=== PATIENT | male | born 1950 | race Caucasian/White ===

== ENCOUNTER 2018-01-17 09:05 | Day surgery (SDC) | payer MEDICARE, OTHER ==
[2018-01-17] VITALS (12 sets, daily range): BP systolic 100–158; BP diastolic 59–94
[~2018-01-17] VITALS: Ht 180.3 cm; Wt 105.1 kg
[2018-01-17] MEDS ORDERED: diphenhydrAMINE 25mg capsule PO PRN (10:05)
[2018-01-17] MEDS ORDERED: nitroGLYCERIN 0.4mg SUBLingual tab SL PRN (10:05)
[2018-01-17] MEDS ORDERED: LORazepam 0.5 MG tablet PO PRN (10:05)
[2018-01-17] MEDS ORDERED: normal saline 1000ml 1,000 ML IV SCH ×2 (10:05→15:25)
[2018-01-17] MEDS ORDERED: CELE200C PO (10:54)
[2018-01-17] MEDS ORDERED: EZET10TA14 PO (10:54)
[2018-01-17] MEDS ORDERED: BACL20TA PO (10:54)
[2018-01-17] MEDS ORDERED: DICL100G15 TOP (10:54)
[2018-01-17] MEDS ORDERED: IBUP1TAB11 PO (10:54)
[2018-01-17] MEDS ORDERED: LANS30CA37 PO (10:54)
[2018-01-17] MEDS ORDERED: DOXE50CA4 PO (10:54)
[2018-01-17] MEDS ORDERED: AMLO10TA4 PO (10:54)
[2018-01-17] MEDS ORDERED: VALS1TAB48 PO (10:54)
[2018-01-17] MEDS ORDERED: DOCU-28 PO (10:54)
[2018-01-17] MEDS ORDERED: HYDR-565 PO (10:54)
[2018-01-17] MEDS ORDERED: FAMO1TAB19 PO (10:54)
[2018-01-17] MEDS ORDERED: FLO0.4C PO (10:54)
[2018-01-17] MEDS ORDERED: ASPI-611 PO (10:54)
[2018-01-17] MEDS ORDERED: LIDOcaine 1% 30ml preserv. free vial ONE (12:25)
[2018-01-17] MEDS ORDERED: midazolam 2 mg/2 ml injection ONE ×2 (12:25→12:58)
[2018-01-17] MEDS ORDERED: iohexol 350MG/ML 100ml bottle IV ONE (12:25)
[2018-01-17] MEDS ORDERED: fentaNYL/PF 50MCG/1 ML 2ML syringe ONE (12:25)
[2018-01-17] MEDS ORDERED: iohexol 350 MG/ML 50ML vial IV ONE ×2 (12:25→13:16)
[2018-01-17] MEDS ORDERED: nitroGLYCERIN-Tridil 50MG/D5W 250 ML IV ONE (13:11)
[2018-01-17] MEDS ORDERED: HYDROcodone/acetaminophen 10/325mg tab PO PRN (15:25)
[2018-01-17] MEDS ORDERED: ondansetron/PF 4mg/2ml inj IV PRN (15:25)
[2018-01-17] MEDS ORDERED: HYDROcodone/acetaminophen 5mg/325mg tablet PO PRN (15:25)
[2018-01-17] MEDS ORDERED: OXAZEpam 15mg capsule PO PRN (15:25)
[2018-01-17] MEDS ORDERED: proCHLORperazine 10 MG/2 ml inj IV PRN (15:25)
== END 2018-01-17 20:00 | disposition home or self-care (01) ==
LOC: SSTAY O 09:05
PROVIDERS: ATTEND Internal Medicine Cardiovascular Disease
DX: I25.10 Atherosclerotic heart disease of native coronary artery without angina pectoris (principal); K21.9 Gastro-esophageal reflux disease without esophagitis; I10 Essential (primary) hypertension; M19.90 Unspecified osteoarthritis, unspecified site; E78.5 Hyperlipidemia, unspecified; M35.3 Polymyalgia rheumatica; Z91.040 Latex allergy status; Z79.82 Long term (current) use of aspirin; Z79.1 Long term (current) use of non-steroidal anti-inflammatories (NSAID); Z79.891 Long term (current) use of opiate analgesic; Z72.89 Other problems related to lifestyle; Z85.828 Personal history of other malignant neoplasm of skin; Z87.891 Personal history of nicotine dependence; Z79.899 Other long term (current) drug therapy; Z98.890 Other specified postprocedural states
CPT/HCPCS: 71046; 93005; 93458; 99152; 99153; A6257; A6258; C1760; C1769; J1644; J2250; J3010; J3490; J7030; Q0163; Q9967; A4620

== ENCOUNTER 2018-01-25 05:25 | Inpatient (IN) | payer MEDICARE, OTHER ==
[2018-01-23 14:22] LABS: CLARITY,URINE CLEAR (Clear); COLOR,URINE YELLOW (Yellow); GLUCOSE, URINE NEGATIVE (Neg); KETONES,URINE NEGATIVE (Neg); LEUKOCYTE ESTERASE ,URINE NEGATIVE (Neg); NITRITES, URINE NEGATIVE (Neg); OCCULT BLOOD,URINE NEGATIVE (Neg); PH,URINE 5.5 (4.8-8.0); PROTEIN,URINE NEGATIVE (Neg); UROBILINOGEN,URINE 0.2 E.U/dL (0.2-1.0)
[2018-01-23 14:23] LABS: UA COLLECTION TYPE CLN CATCH MIDSTREAM
[2018-01-23 14:25] LABS: HEMOGLOBIN A1C 5.5 % (4.5-6.2)
[2018-01-23 14:26] LABS: PRE OP PROTIME 9.9 SECONDS (9.0-12.0)
[2018-01-23 14:30] LABS: ALBUMIN/GLOBULIN RATIO 1.2 (1.1-1.5); ALKALINE PHOSPHATASE 68 IU/L (46-116); BLOOD UREA NITROGEN 23 MG/DL (7-18); BUN/CREATININE RATIO 26.1 (5.4-32.0); CALCIUM 9.4 MG/DL (8.5-10.1); CHLORIDE 106 MMOL/L (99-107); CREATININE 0.88 MG/DL (0.60-1.10); PRE OP ALT 32 U/L (30-65); PRE OP ANION GAP 11 (8-16); PRE OP AST 21 U/L (10-37); PRE OP BILIRUB, TOTAL 0.3 MG/DL (0.0-1.0); PRE OP GLUCOSE 89 MG/DL (70-104); PRE OP SODIUM 142 MMOL/L (135-145); TOTAL CARBON DIOXIDE 24.9 MMOL/L (24-32); TOTAL PROTEIN 7.3 G/DL (6.4-8.2); eGFR 86 ML/MIN
[2018-01-23 14:31] LABS: BASOPHILS # (AUTO) 0.1 X10'3 (0-0.2); BASOPHILS % (AUTO) 0.8 % (0-1); EOSINOPHILS # (AUTO) 0.2 X10'3 (0-0.9); EOSINOPHILS % (AUTO) 2.7 % (0-6); LYMPHOCYTES # (AUTO) 1.1 X10'3 (1.1-4.8); LYMPHOCYTES % (AUTO) 16.4 % (21-51); MEAN CORPUSCULAR HEMOGLOBIN 30.6 PG (27.0-31.0); MEAN CORPUSCULAR HGB CONC 34.6 % (33.0-36.5); MEAN CORPUSCULAR VOLUME 88.3 FL (78-98); MONOCYTES # (AUTO) 0.7 X10'3 (0-0.9); MONOCYTES % (AUTO) 9.9 % (2-12); NEUTROPHILS # (AUTO) 4.9 X10'3 (1.8-7.7); NEUTROPHILS % (AUTO) 70.2 % (42-75); PRE OP HEMATOCRIT 42.1 % (42.0-52.0); PRE OP HEMOGLOBIN 14.6 g/dL (14.0-17.9); PRE OP PLATELET COUNT 168 X10'3 (140-440); RED BLOOD COUNT 4.76 X10'6 (4.70-6.10); RED CELL DISTRIBUTION WIDTH 13.1 % (11.5-14.5)
[2018-01-24 06:36] LABS: ABG BASE EXCESS -2.7 mmol/L (-2.0-3.0); ABG HCO3 20.4 mmol/L (22.0-26.0); ABG OXYGEN SATURATION 95.4 % (95-98); ABG PCO2 (T) 31.2 mmHg (35.0-48.0); ABG PH (T) 7.433 (7.350-7.450); ABG PO2 (T) 75.1 mmHg (83-108); ALLEN'S TEST Positive; FCOHb 0.8 % (0.5-1.5); FMetHb 0.2 % (0.3-1.12); FO2Hb 94.4 % (94-100); TOTAL HEMOGLOBIN 14.9 G/dl (14.0-18.0)
[2018-01-25] VITALS (14 sets, daily range): BP systolic 80–140; BP diastolic 50–81
[~2018-01-25] VITALS: Ht 180.3 cm; Wt 89.0 kg
[~2018-01-25 05:25] MED LIST: AMLO10TA4 PO; ASPI-611 PO; BACL20TA PO; CELE200C PO; DICL100G15 TOP; DOCU-28 PO; DOXE50CA4 PO; EZET10TA14 PO; FAMO1TAB19 PO; FLO0.4C PO; HYDR-565 PO; IBUP1TAB11 PO; LANS30CA37 PO; LORazepam 2 mg/ml vial IV PRN; VALS1TAB48 PO; dextrose 50%-water 50ml dispensing syringe IV PRN; metoprolol tartrate 12.5mg (1/2 tablet) PO PRN; ringers solution, lacted 1,000 ML IV SCH
[2018-01-25] MEDS ORDERED: Cefazolin 2GM/50ML dext iso,osmotic IVPB IV ONE (05:30)
[2018-01-25] MEDS ORDERED: vancomycin inj 1,500 MG in normal saline 300ml IV soln IV ONE (05:30)
[2018-01-25] MEDS ORDERED: famotidine 20mg tablet PO ONE (05:30)
[2018-01-25] MEDS ORDERED: LIDOcaine 1% (10mg/ml) 2ml vial ONE (05:48)
[2018-01-25] MEDS ORDERED: papaverine 30 mg/ml 2ml inj. ONE (09:00)
[2018-01-25] MEDS: mupirocin 2% nasal ointment 1gm UD NS SCH ×2 (09:57→20:33)
[2018-01-25] MEDS ORDERED: MIDAZolam 1mg/ml 10ml vial ONE (12:16)
[2018-01-25] MEDS ORDERED: SUFENTANIL CITRATE 50 MCG/ML 2ml ampule IV ONE (12:16)
[2018-01-25] MEDS ORDERED: propofol inj 20 ML IV ONE (12:19)
[2018-01-25] MEDS ORDERED: rocuronium 10mg/ml inj IV ONE (12:20)
[2018-01-25] MEDS ORDERED: LIDOcaine 2% (20 mg/ml) 5ml cardiac syringe ONE (12:21)
[2018-01-25] MEDS ORDERED: methylPREDNISolone sod. succ. 500mg inj ONE (12:21)
[2018-01-25] MEDS ORDERED: albumin (human) 25% 100 ML IV solution IV ONE (12:21)
[2018-01-25] MEDS ORDERED: magnesium sulf 1 GM/2 ML ONE (12:21)
[2018-01-25] MEDS ORDERED: potassium Cl 2 mEq/ml inj IV ONE (12:21)
[2018-01-25] MEDS ORDERED: phenylephrine 10mg/ml inj. ONE (12:21)
[2018-01-25] MEDS ORDERED: protamine sulf. 10mg/ml inj. IV ONE (12:21)
[2018-01-25] MEDS ORDERED: sodium bicarbonate (8.4%) 1 mEq/ml syringe ONE ×2 (12:21→16:40)
[2018-01-25] MEDS ORDERED: heparin 1,000 units/ml 10ml inj ONE (12:21)
[2018-01-25] MEDS ORDERED: calcium chloride 100 MG/1 ML inj IV ONE (12:21)
[2018-01-25] MEDS ORDERED: aminocaproic acid 250 MG/1 ML inj. ONE ×2 (12:21)
[2018-01-25] MEDS ORDERED: sevoflurane 250ml liquid IH ONE (12:21)
[2018-01-25] MEDS ORDERED: heparin 10,000 units/1 ML INJ ONE (12:21)
[2018-01-25 13:16] LABS: ABG HCO3 23.4 mmol/L (22.0-26.0); ABG OXYGEN SATURATION 99.2 % (95-98); ABG PCO2 37.8 mmHg (35.0-45.0); ABG PH 7.409 (7.350-7.450); ABG PO2 268.2 mmHg (60.0-100.0); CL (ABG) 108 mmol/L (99-107); FCOHb 0.6 % (0.5-1.5); FMetHb 0.3 % (0.3-1.12); FO2Hb 98.3 % (94-100); GLUCOSE (ABG) 101 mg/dl (70-105); K (ABG) 3.7 mmol/L (3.3-5.1); NA (ABG) 139 mmol/L (135-145); TOTAL HEMOGLOBIN 13.9 G/dl (14.0-18.0)
[2018-01-25] MEDS ORDERED: heparin 10,000 units/1 ML INJ IR ONE (13:30)
[2018-01-25] MEDS ORDERED: papaverine 30 mg/ml 2ml inj. IA ONE (13:34)
[2018-01-25 13:51] LABS: ABG BASE EXCESS VENOUS -2.2 mmol/L; ABG HCO3 VENOUS 23.5 mmol/L; CL (ABG) 106 mmol/L (99-107); FHHb VENOUS 28.4 %; FMetHb VENOUS 0.2 %; FO2Hb VENOUS 70.4 %; GLUCOSE (ABG) 93 mg/dl (70-105); NA (ABG) 138 mmol/L (135-145); TOTAL HEMOGLOBIN 13.7 G/dl (14.0-18.0)
[2018-01-25 14:25] LABS: ABG BASE EXCESS -3.8 mmol/L (-2.0-3.0); ABG HCO3 20.8 mmol/L (22.0-26.0); ABG OXYGEN SATURATION 99.1 % (95-98); ABG PCO2 36.1 mmHg (35.0-45.0); ABG PH 7.378 (7.350-7.450); ABG PO2 338.7 mmHg (60.0-100.0); CL (ABG) 105 mmol/L (99-107); FCOHb 0.6 % (0.5-1.5); FO2Hb 98.5 % (94-100); GLUCOSE (ABG) 96 mg/dl (70-105); IONIZED CA (ABG) 1.09 mmol/L (1.03-1.32); K (ABG) 4.9 mmol/L (3.3-5.1); NA (ABG) 136 mmol/L (135-145); TOTAL HEMOGLOBIN 11.4 G/dl (14.0-18.0)
[2018-01-25 14:46] LABS: ABG BASE EXCESS -2.6 mmol/L (-2.0-3.0); ABG HCO3 23.2 mmol/L (22.0-26.0); ABG OXYGEN SATURATION 99.3 % (95-98); ABG PCO2 44.2 mmHg (35.0-45.0); ABG PH 7.338 (7.350-7.450); ABG PO2 326.1 mmHg (60.0-100.0); CL (ABG) 107 mmol/L (99-107); FCOHb 0.7 % (0.5-1.5); FMetHb 0.2 % (0.3-1.12); FO2Hb 98.4 % (94-100); GLUCOSE (ABG) 120 mg/dl (70-105); K (ABG) 4.8 mmol/L (3.3-5.1); NA (ABG) 138 mmol/L (135-145); TOTAL HEMOGLOBIN 11.5 G/dl (14.0-18.0)
[2018-01-25 15:25] LABS: ABG BASE EXCESS VENOUS -2.2 mmol/L; ABG PCO2 VENOUS 46.6 mmHg; ABG PO2 VENOUS 53.4 mmHg; CL (ABG) 106 mmol/L (99-107); FCOHb VENOUS 0.6 %; FHHb VENOUS 14.7 %; FMetHb VENOUS 0.6 %; FO2Hb VENOUS 84.1 %; GLUCOSE (ABG) 121 mg/dl (70-105); IONIZED CA (ABG) 1.25 mmol/L (1.03-1.32); K (ABG) 4.4 mmol/L (3.3-5.1); NA (ABG) 143 mmol/L (135-145); TOTAL HEMOGLOBIN 12.2 G/dl (14.0-18.0)
[2018-01-25] MEDS ORDERED: non-formulary drug (Diclofenac Sodium (Voltaren) 1 GM) TOP PRN (15:55)
[2018-01-25] MEDS ORDERED: niCARDipine/sod cl 20mg/200ml 200 ML IV PRN (15:56)
[2018-01-25] MEDS ORDERED: DOPamine 400mg/D5W 250ml 250 ML IV PRN (15:56)
[2018-01-25] MEDS ORDERED: nitroGLYCERIN-Tridil 50MG/D5W 250 ML IV PRN (15:56)
[2018-01-25] MEDS: ceFAZolin 1GM/D5W- ADD-VANTAGE 50 ML IV SCH (16:00)
[2018-01-25] MEDS ORDERED: Neutra Phos packet PO PRN (16:00)
[2018-01-25] MEDS ORDERED: ondansetron/PF 4mg/2ml inj IV PRN (16:00)
[2018-01-25] MEDS ORDERED: sodium phosphate inj. 30 MMOL in dextrose 5%-water 250 ML IV PRN (16:00)
[2018-01-25] MEDS ORDERED: sodium phosphate inj. 15 MMOL in dextrose 5%-water 150 ML IV PRN (16:00)
[2018-01-25] MEDS ORDERED: dextrose 50%-water 50ml dispensing syringe IV PRN (16:00)
[2018-01-25] MEDS ORDERED: acetaminophen 325mg tablet PO PRN (16:00)
[2018-01-25] MEDS ORDERED: insulin regular, human inj. 100 UNITS in normal saline 100ml IV soln 100 ML IV SCH ×2 (16:00)
[2018-01-25] MEDS ORDERED: normal saline 250ml IV soln 250 ML IV PRN (16:00)
[2018-01-25] MEDS ORDERED: magnesium 4gm in 100ml NS 100 ML IV PRN (16:00)
[2018-01-25] MEDS ORDERED: metoclopramide 5 mg/ml inj IV PRN (16:00)
[2018-01-25] MEDS ORDERED: potassium Cl 20mEq/100mL bag 100 ML IV PRN ×2 (16:00)
[2018-01-25] MEDS ORDERED: HYDROcodone/acetaminophen 10/325mg tab PO PRN (16:00)
[2018-01-25] MEDS ORDERED: magnesium 1gm/100ml D5W IVPB 100 ML IV PRN (16:00)
[2018-01-25] MEDS ORDERED: magnesium hydroxide 30ml (MOM) UD suspension PO PRN (16:00)
[2018-01-25] MEDS ORDERED: morphine 4 MG/ML inj SYRINge ONE (16:12)
[2018-01-25] MEDS ORDERED: NORepinephrine 8mg/ 250ml NS 250 ML IV ONE (16:24)
[2018-01-25] MEDS ORDERED: propofol 1000mg/100ml bottle 100 ML IV ONE (16:24)
[2018-01-25] MEDS ORDERED: NORepinephrine 8mg/ 250ml NS 250 ML IV SCH (16:30)
[2018-01-25] MEDS ORDERED: sodium bicarbonate (8.4%) 1 mEq/ml syringe IV ONE ×2 (16:30→18:15)
[2018-01-25 16:31] LABS: ABG BASE EXCESS -7.6 mmol/L (-2.0-3.0); ABG HCO3 18.1 mmol/L (22.0-26.0); ABG OXYGEN SATURATION 93.9 % (95-98); ABG PCO2 (T) 37.7 mmHg (35.0-48.0); ABG PH (T) 7.299 (7.350-7.450); ABG PO2 (T) 78.2 mmHg (83-108); FCOHb 0.1 % (0.5-1.5); FMetHb 0.3 % (0.3-1.12); FO2Hb 93.5 % (94-100); MINUTE VOLUME 7 L/min; PATIENT TEMPERATURE 36.9; PEEP 5 cm H2O; RESPIRATORY RATE 12 b/min; RESPIRATORY RATE (OBSERVED) 12 b/min; TIDAL VOLUME 650 mL; TOTAL HEMOGLOBIN 14.1 G/dl (14.0-18.0)
[2018-01-25 16:40] LABS: BASOPHILS % (AUTO) 0.2 % (0-1); EOSINOPHILS # (AUTO) 0.3 X10'3 (0-0.9); EOSINOPHILS % (AUTO) 1.6 % (0-6); HEMATOCRIT 39.6 % (42.0-52.0); HEMOGLOBIN 13.6 g/dl (14.0-17.9); LYMPHOCYTES # (AUTO) 2.1 X10'3 (1.1-4.8); LYMPHOCYTES % (AUTO) 11.6 % (21-51); MEAN CORPUSCULAR HEMOGLOBIN 30.6 PG (27.0-31.0); MEAN CORPUSCULAR HGB CONC 34.3 % (33.0-36.5); MEAN CORPUSCULAR VOLUME 89.4 FL (78-98); MEAN PLATELET VOLUME 9.5 FL (7.4-10.4); MONOCYTES # (AUTO) 0.6 X10'3 (0-0.9); MONOCYTES % (AUTO) 3.6 % (2-12); NEUTROPHILS # (AUTO) 14.9 X10'3 (1.8-7.7); PLATELET COUNT 139 X10'3 (140-440); RED BLOOD COUNT 4.43 X10'6 (4.70-6.10)
[2018-01-25 16:52] LABS: ALANINE AMINOTRANSFERASE 28 U/L (12-78); ALBUMIN 3.3 G/DL (3.4-5.0); ALBUMIN/GLOBULIN RATIO 1.5 (1.1-1.5); ALKALINE PHOSPHATASE 44 IU/L (46-116); ANION GAP 6 (8-16); ASPARTATE AMINO TRANSFERASE 25 U/L (10-37); BILIRUBIN,TOTAL 0.7 MG/DL (0.1-1.0); BLOOD UREA NITROGEN 14 MG/DL (7-18); BUN/CREATININE RATIO 14.4 (5.4-32.0); CALCIUM 9.9 MG/DL (8.5-10.1); CHLORIDE 110 MMOL/L (99-107); CREATININE 0.97 MG/DL (0.60-1.10); GLUCOSE 146 MG/DL (70-104); MAGNESIUM 2.6 MG/DL (1.5-2.4); PHOSPHORUS 2.9 MG/DL (2.3-4.5); POTASSIUM 3.9 MMOL/L (3.5-5.1); SODIUM 141 MMOL/L (135-145); TOTAL PROTEIN 5.5 G/DL (6.4-8.2); eGFR 77 ML/MIN
[2018-01-25] MEDS: morphine 4 MG/ML inj SYRINge IV PRN ×2 (16:59→21:01)
[2018-01-25] MEDS: propofol 1000mg/100ml bottle 100 ML IV PRN ×2 (17:01→20:51)
[2018-01-25] MEDS: sodium chloride 0.45% 1,000 ML IV SCH (17:01)
[2018-01-25] MEDS: potassium Cl 20mEq/100mL bag 100 ML IV PRN ×2 (17:24→18:40)
[2018-01-25 17:33] LABS: INR 1.1 INR; PARTIAL THROMBOPLASTIN TIME 26 SECONDS (22-32); PROTHROMBIN TIME 11.3 SECONDS (9.0-12.0)
[2018-01-25] MEDS: insulin Lispro (HumaLOG) vial - multi-dose SQ SCH (18:00)
[2018-01-25 18:06] LABS: ABG BASE EXCESS -4.9 mmol/L (-2.0-3.0); ABG HCO3 19.8 mmol/L (22.0-26.0); ABG OXYGEN SATURATION 95.2 % (95-98); ABG PH (T) 7.359 (7.350-7.450); FCOHb 0.1 % (0.5-1.5); FLOW 45 L/min; FMetHb 0.4 % (0.3-1.12); FO2Hb 94.7 % (94-100); MINUTE VOLUME 10 L/min; PEEP 5 cm H2O; RESPIRATORY RATE 12 b/min; RESPIRATORY RATE (OBSERVED) 12 b/min; TIDAL VOLUME 696 mL; TOTAL HEMOGLOBIN 14.7 G/dl (14.0-18.0)
[2018-01-25] MEDS: albumin (Human) 5% 250ml 250 ML IV PRN (18:17)
[2018-01-25] MEDS: insulin regular, human 100 UNIT in normal saline 100ml IV soln 99 ML IV SCH ×10 (19:34→23:06)
[2018-01-25] MEDS: docusate sod 100mg capsule PO SCH (20:00)
[2018-01-25] MEDS: mupirocin 2% ointment 22GM NS SCH (20:00)
[2018-01-25] MEDS: vancomycin/NS 1 GM ADD-VANTAGE 250 ML IV SCH (20:33)
[2018-01-25] MEDS: celeCOXIB 100mg capsule PO SCH (20:34)
[2018-01-25] MEDS: baclofen 10mg tablet PO SCH (20:36)
[2018-01-25] MEDS: DICLOFENAC 1% TOP SCH (20:53)
[2018-01-25] MEDS: doxepin 25mg capsule PO SCH (21:03)
[2018-01-25 22:20] LABS: BASOPHILS % (AUTO) 0.1 % (0-1); EOSINOPHILS % (AUTO) 0 % (0-6); HEMATOCRIT 35.5 % (42.0-52.0); HEMOGLOBIN 12.1 g/dl (14.0-17.9); LYMPHOCYTES # (AUTO) 0.3 X10'3 (1.1-4.8); LYMPHOCYTES % (AUTO) 2.5 % (21-51); MEAN CORPUSCULAR HGB CONC 34.1 % (33.0-36.5); MEAN CORPUSCULAR VOLUME 88.1 FL (78-98); MEAN PLATELET VOLUME 9.3 FL (7.4-10.4); MONOCYTES # (AUTO) 0.3 X10'3 (0-0.9); MONOCYTES % (AUTO) 2.5 % (2-12); NEUTROPHILS # (AUTO) 11.5 X10'3 (1.8-7.7); NEUTROPHILS % (AUTO) 94.9 % (42-75); PLATELET COUNT 122 X10'3 (140-440); RED BLOOD COUNT 4.03 X10'6 (4.70-6.10); RED CELL DISTRIBUTION WIDTH 13.4 % (11.5-14.5); WHITE BLOOD COUNT 12.1 X10'3 (4.5-11.0)
[2018-01-25 22:32] LABS: ALBUMIN 3.2 G/DL (3.4-5.0); ANION GAP 9 (8-16); BLOOD UREA NITROGEN 13 MG/DL (7-18); BUN/CREATININE RATIO 13.7 (5.4-32.0); CALCIUM 8.7 MG/DL (8.5-10.1); CHLORIDE 112 MMOL/L (99-107); CREATININE 0.95 MG/DL (0.60-1.10); GLUCOSE 171 MG/DL (70-104); SODIUM 146 MMOL/L (135-145); eGFR 79 ML/MIN
[2018-01-26] VITALS (23 sets, daily range): BP systolic 92–154; BP diastolic 52–90
[2018-01-26 00:11] LABS: ABG BASE EXCESS 0.1 mmol/L (-2.0-3.0); ABG HCO3 23.4 mmol/L (22.0-26.0); ABG OXYGEN SATURATION 95.7 % (95-98); ABG PCO2 (T) 34.2 mmHg (35.0-48.0); ABG PH (T) 7.454 (7.350-7.450); ABG PO2 (T) 82.8 mmHg (83-108); FCOHb 0.3 % (0.5-1.5); FMetHb 0.2 % (0.3-1.12); FO2Hb 95.2 % (94-100); MINUTE VOLUME 14 L/min; PATIENT TEMPERATURE 37.2; PEEP 5 cm H2O; RESPIRATORY RATE (OBSERVED) 17 b/min; TOTAL HEMOGLOBIN 12.5 G/dl (14.0-18.0)
[2018-01-26] MEDS: albumin (Human) 5% 250ml 250 ML IV PRN (00:11)
[2018-01-26] MEDS: ceFAZolin 1GM/D5W- ADD-VANTAGE 50 ML IV SCH ×3 (00:12→15:43)
[2018-01-26] MEDS: morphine 4 MG/ML inj SYRINge IV PRN ×3 (00:33→22:42)
[2018-01-26] MEDS ORDERED: albuterol 2.5 MG/3 ML nebule NEB PRN (00:35)
[2018-01-26] MEDS: HYDROcodone/acetaminophen 10/325mg tab PO PRN ×4 (01:21→21:08)
[2018-01-26 03:03] LABS: BASOPHILS % (AUTO) 0 % (0-1); EOSINOPHILS % (AUTO) 0 % (0-6); HEMATOCRIT 33.1 % (42.0-52.0); HEMOGLOBIN 11.2 g/dl (14.0-17.9); LYMPHOCYTES # (AUTO) 0.3 X10'3 (1.1-4.8); LYMPHOCYTES % (AUTO) 3.3 % (21-51); MEAN CORPUSCULAR HEMOGLOBIN 30.1 PG (27.0-31.0); MEAN CORPUSCULAR VOLUME 88.6 FL (78-98); MEAN PLATELET VOLUME 9.6 FL (7.4-10.4); MONOCYTES # (AUTO) 0.3 X10'3 (0-0.9); MONOCYTES % (AUTO) 3.5 % (2-12); NEUTROPHILS # (AUTO) 9.1 X10'3 (1.8-7.7); NEUTROPHILS % (AUTO) 93.2 % (42-75); PLATELET COUNT 107 X10'3 (140-440); RED BLOOD COUNT 3.73 X10'6 (4.70-6.10); RED CELL DISTRIBUTION WIDTH 13.2 % (11.5-14.5); WHITE BLOOD COUNT 9.8 X10'3 (4.5-11.0)
[2018-01-26 03:14] LABS: PARTIAL THROMBOPLASTIN TIME 25 SECONDS (22-32); PROTHROMBIN TIME 10.8 SECONDS (9.0-12.0)
[2018-01-26 03:27] LABS: ALANINE AMINOTRANSFERASE 22 U/L (12-78); ALBUMIN 3.3 G/DL (3.4-5.0); ALBUMIN/GLOBULIN RATIO 1.6 (1.1-1.5); ALKALINE PHOSPHATASE 36 IU/L (46-116); ANION GAP 6 (8-16); ASPARTATE AMINO TRANSFERASE 23 U/L (10-37); BILIRUBIN,TOTAL 0.4 MG/DL (0.1-1.0); BLOOD UREA NITROGEN 13 MG/DL (7-18); BUN/CREATININE RATIO 13.1 (5.4-32.0); CALCIUM 8.6 MG/DL (8.5-10.1); CHLORIDE 113 MMOL/L (99-107); CREATININE 0.99 MG/DL (0.60-1.10); GLUCOSE 142 MG/DL (70-104); MAGNESIUM 1.9 MG/DL (1.5-2.4); POTASSIUM 3.9 MMOL/L (3.5-5.1); SODIUM 144 MMOL/L (135-145); TOTAL CARBON DIOXIDE 25.5 MMOL/L (24-32); TOTAL PROTEIN 5.4 G/DL (6.4-8.2); eGFR 75 ML/MIN
[2018-01-26] MEDS: potassium Cl 20mEq/100mL bag 100 ML IV PRN ×4 (04:54→19:37)
[2018-01-26] MEDS: insulin regular, human 100 UNIT in normal saline 100ml IV soln 99 ML IV SCH ×2 (04:58)
[2018-01-26] MEDS: baclofen 10mg tablet PO SCH ×3 (08:14→21:05)
[2018-01-26] MEDS: mupirocin 2% ointment 22GM NS SCH ×2 (08:14→20:12)
[2018-01-26] MEDS: aspirin 325mg tablet, delayed-release (Ecotrin) PO SCH (08:14)
[2018-01-26] MEDS: vancomycin/NS 1 GM ADD-VANTAGE 250 ML IV SCH ×2 (08:14→20:11)
[2018-01-26] MEDS: ezetimibe 10mg tablet PO SCH (08:15)
[2018-01-26] MEDS: celeCOXIB 100mg capsule PO SCH ×2 (08:15→20:12)
[2018-01-26] MEDS: tamsulosin 0.4mg capsule PO SCH (08:15)
[2018-01-26] MEDS: docusate sod 100mg capsule PO SCH ×2 (08:15→20:11)
[2018-01-26] MEDS: pantoprazole 40mg Tablet.DR PO SCH (08:15)
[2018-01-26] MEDS: insulin Lispro (HumaLOG) vial - multi-dose SQ SCH (08:39)
[2018-01-26] MEDS: metoprolol tartrate 12.5mg (1/2 tablet) PO SCH ×2 (11:53→20:12)
[2018-01-26] MEDS: sodium chloride 0.45% 1,000 ML IV SCH (17:05)
[2018-01-26] MEDS: DICLOFENAC 1% TOP SCH (21:00)
[2018-01-26] MEDS: doxepin 25mg capsule PO SCH (21:04)
[2018-01-27] VITALS (24 sets, daily range): BP systolic 104–138; BP diastolic 60–80
[2018-01-27] MEDS: ceFAZolin 1GM/D5W- ADD-VANTAGE 50 ML IV SCH (00:06)
[2018-01-27 02:36] LABS: BASOPHILS % (AUTO) 0.2 % (0-1); EOSINOPHILS % (AUTO) 0 % (0-6); HEMATOCRIT 29.5 % (42.0-52.0); LYMPHOCYTES # (AUTO) 0.6 X10'3 (1.1-4.8); LYMPHOCYTES % (AUTO) 4.3 % (21-51); MEAN CORPUSCULAR HEMOGLOBIN 30.2 PG (27.0-31.0); MEAN CORPUSCULAR HGB CONC 33.8 % (33.0-36.5); MEAN CORPUSCULAR VOLUME 89.2 FL (78-98); MEAN PLATELET VOLUME 9.9 FL (7.4-10.4); MONOCYTES # (AUTO) 0.8 X10'3 (0-0.9); MONOCYTES % (AUTO) 6.3 % (2-12); NEUTROPHILS # (AUTO) 11.8 X10'3 (1.8-7.7); NEUTROPHILS % (AUTO) 89.2 % (42-75); PLATELET COUNT 88 X10'3 (140-440); RED BLOOD COUNT 3.31 X10'6 (4.70-6.10); RED CELL DISTRIBUTION WIDTH 13.2 % (11.5-14.5); WHITE BLOOD COUNT 13.3 X10'3 (4.5-11.0)
[2018-01-27 02:49] LABS: ALBUMIN 2.9 G/DL (3.4-5.0); ANION GAP 6 (8-16); BLOOD UREA NITROGEN 17 MG/DL (7-18); BUN/CREATININE RATIO 19.3 (5.4-32.0); CALCIUM 8.3 MG/DL (8.5-10.1); CHLORIDE 110 MMOL/L (99-107); CREATININE 0.88 MG/DL (0.60-1.10); GLUCOSE 139 MG/DL (70-104); MAGNESIUM 2.5 MG/DL (1.5-2.4); PHOSPHORUS 3.5 MG/DL (2.3-4.5); POTASSIUM 4.5 MMOL/L (3.5-5.1); SODIUM 143 MMOL/L (135-145); TOTAL CARBON DIOXIDE 26.7 MMOL/L (24-32); eGFR 86 ML/MIN
[2018-01-27] MEDS: pantoprazole 40mg Tablet.DR PO SCH (07:30)
[2018-01-27] MEDS: ezetimibe 10mg tablet PO SCH (08:00)
[2018-01-27] MEDS: celeCOXIB 100mg capsule PO SCH ×2 (08:00→20:51)
[2018-01-27] MEDS: mupirocin 2% ointment 22GM NS SCH (08:00)
[2018-01-27] MEDS: aspirin 325mg tablet, delayed-release (Ecotrin) PO SCH (08:00)
[2018-01-27] MEDS: tamsulosin 0.4mg capsule PO SCH (08:00)
[2018-01-27] MEDS: docusate sod 100mg capsule PO SCH ×2 (08:00→20:51)
[2018-01-27] MEDS: metoprolol tartrate 12.5mg (1/2 tablet) PO SCH ×2 (08:00→20:51)
[2018-01-27] MEDS ORDERED: magnesium 1gm/100ml D5W IVPB 100 ML IV PRN (08:05)
[2018-01-27] MEDS ORDERED: potassium Cl 20 mEq SR tablet PO PRN ×2 (08:05)
[2018-01-27] MEDS ORDERED: magnesium 4gm in 100ml NS 100 ML IV PRN (08:05)
[2018-01-27] MEDS ORDERED: potassium Cl 40MEQ/NS 500ml 500 ML IV PRN ×2 (08:05)
[2018-01-27] MEDS ORDERED: magnesium Cl slow-release 64mg tablet PO PRN (08:05)
[2018-01-27] MEDS: baclofen 10mg tablet PO SCH ×3 (13:00→20:51)
[2018-01-27] MEDS: HYDROcodone/acetaminophen 10/325mg tab PO PRN (15:29)
[2018-01-27] MEDS: potassium Cl 20 mEq SR tablet PO SCH (20:00)
[2018-01-27] MEDS: magnesium Cl slow-release 64mg tablet PO SCH (20:00)
[2018-01-27] MEDS: doxepin 25mg capsule PO SCH (20:51)
[2018-01-27] MEDS: DICLOFENAC 1% TOP SCH (21:00)
[2018-01-28] VITALS (17 sets, daily range): BP systolic 88–156; BP diastolic 53–91
[2018-01-28 00:42] LABS: ALANINE AMINOTRANSFERASE 22 U/L (12-78); ALBUMIN 2.9 G/DL (3.4-5.0); ALBUMIN/GLOBULIN RATIO 1.2 (1.1-1.5); ALKALINE PHOSPHATASE 39 IU/L (46-116); ANION GAP 2 (8-16); ASPARTATE AMINO TRANSFERASE 21 U/L (10-37); BILIRUBIN,TOTAL 0.4 MG/DL (0.1-1.0); BLOOD UREA NITROGEN 18 MG/DL (7-18); BUN/CREATININE RATIO 20.2 (5.4-32.0); CALCIUM 8.3 MG/DL (8.5-10.1); CHLORIDE 111 MMOL/L (99-107); CREATININE 0.89 MG/DL (0.60-1.10); GLUCOSE 117 MG/DL (70-104); MAGNESIUM 2.1 MG/DL (1.5-2.4); PHOSPHORUS 2.7 MG/DL (2.3-4.5); POTASSIUM 4.1 MMOL/L (3.5-5.1); SODIUM 141 MMOL/L (135-145); TOTAL CARBON DIOXIDE 28.3 MMOL/L (24-32); TOTAL PROTEIN 5.4 G/DL (6.4-8.2); eGFR 85 ML/MIN
[2018-01-28] MEDS: HYDROcodone/acetaminophen 10/325mg tab PO PRN ×4 (03:34→21:24)
[2018-01-28 05:25] LABS: BASOPHILS % (AUTO) 0.2 % (0-1); EOSINOPHILS # (AUTO) 0.1 X10'3 (0-0.9); HEMATOCRIT 29.9 % (42.0-52.0); HEMOGLOBIN 10.1 g/dl (14.0-17.9); LYMPHOCYTES # (AUTO) 1.1 X10'3 (1.1-4.8); LYMPHOCYTES % (AUTO) 12.5 % (21-51); MEAN CORPUSCULAR HEMOGLOBIN 30.2 PG (27.0-31.0); MEAN CORPUSCULAR HGB CONC 33.7 % (33.0-36.5); MEAN CORPUSCULAR VOLUME 89.4 FL (78-98); MEAN PLATELET VOLUME 10.1 FL (7.4-10.4); MONOCYTES # (AUTO) 0.8 X10'3 (0-0.9); MONOCYTES % (AUTO) 8.8 % (2-12); NEUTROPHILS # (AUTO) 7.1 X10'3 (1.8-7.7); NEUTROPHILS % (AUTO) 77.5 % (42-75); PLATELET COUNT 85 X10'3 (140-440); RED BLOOD COUNT 3.34 X10'6 (4.70-6.10); RED CELL DISTRIBUTION WIDTH 13.5 % (11.5-14.5); WHITE BLOOD COUNT 9.1 X10'3 (4.5-11.0)
[2018-01-28 06:12] LABS: ALBUMIN 2.9 G/DL (3.4-5.0); ANION GAP 7 (8-16); BLOOD UREA NITROGEN 15 MG/DL (7-18); BUN/CREATININE RATIO 19.7 (5.4-32.0); CALCIUM 8.5 MG/DL (8.5-10.1); CHLORIDE 112 MMOL/L (99-107); CREATININE 0.76 MG/DL (0.60-1.10); GLUCOSE 98 MG/DL (70-104); POTASSIUM 3.9 MMOL/L (3.5-5.1); SODIUM 145 MMOL/L (135-145); TOTAL CARBON DIOXIDE 26.4 MMOL/L (24-32); eGFR > 90 ML/MIN
[2018-01-28] MEDS: K and/or MAG REPLACEMENT MC SCH (08:00)
[2018-01-28] MEDS: metoprolol tartrate 12.5mg (1/2 tablet) PO SCH ×2 (08:21→19:45)
[2018-01-28] MEDS: tamsulosin 0.4mg capsule PO SCH (08:25)
[2018-01-28] MEDS: baclofen 10mg tablet PO SCH ×3 (08:27→21:24)
[2018-01-28] MEDS: ezetimibe 10mg tablet PO SCH (08:30)
[2018-01-28] MEDS: pantoprazole 40mg Tablet.DR PO SCH (08:30)
[2018-01-28] MEDS: aspirin 325mg tablet, delayed-release (Ecotrin) PO SCH (08:30)
[2018-01-28] MEDS: magnesium Cl slow-release 64mg tablet PO SCH ×2 (08:30→20:00)
[2018-01-28] MEDS: celeCOXIB 100mg capsule PO SCH ×2 (08:31→19:45)
[2018-01-28] MEDS: potassium Cl 20 mEq SR tablet PO SCH ×2 (08:31→19:44)
[2018-01-28] MEDS: docusate sod 100mg capsule PO SCH ×2 (08:31→19:44)
[2018-01-28] MEDS ORDERED: magnesium citrate 296ml oral solution PO ONE (09:10)
[2018-01-28] MEDS: DICLOFENAC 1% TOP SCH (21:00)
[2018-01-28] MEDS: doxepin 25mg capsule PO SCH (21:25)
[2018-01-29 03:00] VITALS: BP 120/69
[2018-01-29 05:26] LABS: ACT @ 1.70 U 304 SEC (193-297); ACT @ 2.84 U 453 SEC (260-420); BASELINE ACT 150 SEC (101-148)
[2018-01-29 05:26] LABS: ACTIVATED CLOTTING TIME 104 SEC (101-148)
[2018-01-29 06:00] VITALS: BP 140/83
[2018-01-29 06:03] LABS: BASOPHILS % (AUTO) 0.5 % (0-1); EOSINOPHILS # (AUTO) 0.2 X10'3 (0-0.9); EOSINOPHILS % (AUTO) 2.1 % (0-6); HEMATOCRIT 31.3 % (42.0-52.0); HEMOGLOBIN 10.7 g/dl (14.0-17.9); LYMPHOCYTES # (AUTO) 1.3 X10'3 (1.1-4.8); MEAN CORPUSCULAR HEMOGLOBIN 30.4 PG (27.0-31.0); MEAN CORPUSCULAR HGB CONC 34.3 % (33.0-36.5); MEAN CORPUSCULAR VOLUME 88.5 FL (78-98); MEAN PLATELET VOLUME 10.2 FL (7.4-10.4); MONOCYTES # (AUTO) 0.7 X10'3 (0-0.9); MONOCYTES % (AUTO) 9.2 % (2-12); NEUTROPHILS # (AUTO) 5.7 X10'3 (1.8-7.7); NEUTROPHILS % (AUTO) 72.2 % (42-75); PLATELET COUNT 105 X10'3 (140-440); RED BLOOD COUNT 3.53 X10'6 (4.70-6.10); RED CELL DISTRIBUTION WIDTH 13.2 % (11.5-14.5)
[2018-01-29 06:27] LABS: ALBUMIN 3.1 G/DL (3.4-5.0); ANION GAP 8 (8-16); BLOOD UREA NITROGEN 15 MG/DL (7-18); BUN/CREATININE RATIO 16.7 (5.4-32.0); CALCIUM 8.7 MG/DL (8.5-10.1); CHLORIDE 108 MMOL/L (99-107); GLUCOSE 96 MG/DL (70-104); MAGNESIUM 2.1 MG/DL (1.5-2.4); POTASSIUM 3.8 MMOL/L (3.5-5.1); SODIUM 141 MMOL/L (135-145); TOTAL CARBON DIOXIDE 25.3 MMOL/L (24-32); eGFR 84 ML/MIN
[2018-01-29] MEDS: K and/or MAG REPLACEMENT MC SCH (08:00)
[2018-01-29] MEDS: docusate sod 100mg capsule PO SCH (08:00)
[2018-01-29] MEDS: magnesium Cl slow-release 64mg tablet PO SCH (08:00)
[2018-01-29] MEDS: ezetimibe 10mg tablet PO SCH (08:07)
[2018-01-29] MEDS: pantoprazole 40mg Tablet.DR PO SCH (08:07)
[2018-01-29] MEDS: aspirin 325mg tablet, delayed-release (Ecotrin) PO SCH (08:07)
[2018-01-29] MEDS: baclofen 10mg tablet PO SCH ×2 (08:07→13:00)
[2018-01-29] MEDS: tamsulosin 0.4mg capsule PO SCH (08:07)
[2018-01-29] MEDS: potassium Cl 20 mEq SR tablet PO SCH (08:07)
[2018-01-29] MEDS: celeCOXIB 100mg capsule PO SCH (08:08)
[2018-01-29] MEDS: metoprolol tartrate 12.5mg (1/2 tablet) PO SCH (08:08)
[2018-01-29] MEDS ORDERED: HYDR-3972 PO (10:10)
[2018-01-29] MEDS ORDERED: METO25TA6 PO (10:10)
[2018-01-29 11:00] VITALS: BP 143/79
== END 2018-01-29 13:00 | disposition home or self-care (01) | DRG 236 ==
LOC: PAS IN 05:25 → EDSTATUS 07:30 → CICU 2S 12:03 → PCU 3S 01-28 12:10
PROVIDERS: ADMIT Thoracic Surgery (Cardiothoracic Vascular Surgery); ATTEND Thoracic Surgery (Cardiothoracic Vascular Surgery)
PROC: 021109W Bypass Coronary Artery, Two Arteries from Aorta with Autologous Venous Tissue, Open Approach (ICD-10-PCS; 2018-01-25)
PROC: 06BQ4ZZ Excision of Left Saphenous Vein, Percutaneous Endoscopic Approach (ICD-10-PCS; 2018-01-25)
PROC: 5A1221Z Performance of Cardiac Output, Continuous (ICD-10-PCS; 2018-01-25)
PROC: B24BZZ4 Ultrasonography of Heart with Aorta, Transesophageal (ICD-10-PCS; 2018-01-25)
PROC: 05HM33Z Insertion of Infusion Device into Right Internal Jugular Vein, Percutaneous Approach (ICD-10-PCS; 2018-01-25)
PROC: B543ZZA Ultrasonography of Right Jugular Veins, Guidance (ICD-10-PCS; 2018-01-25)
PROC: 02100Z9 Bypass Coronary Artery, One Artery from Left Internal Mammary, Open Approach (ICD-10-PCS; principal; 2018-01-25 12:21)
DX: I25.10 Atherosclerotic heart disease of native coronary artery without angina pectoris (principal); I31.3 Pericardial effusion (noninflammatory); M48.061 Spinal stenosis, lumbar region without neurogenic claudication; K21.9 Gastro-esophageal reflux disease without esophagitis; M35.3 Polymyalgia rheumatica; E78.5 Hyperlipidemia, unspecified; I48.91 Unspecified atrial fibrillation; M19.90 Unspecified osteoarthritis, unspecified site; G47.30 Sleep apnea, unspecified; R00.1 Bradycardia, unspecified; I10 Essential (primary) hypertension; I25.2 Old myocardial infarction; Z88.8 Allergy status to other drugs, medicaments and biological substances; Z91.040 Latex allergy status; Z79.899 Other long term (current) drug therapy; Z85.828 Personal history of other malignant neoplasm of skin; Z87.891 Personal history of nicotine dependence
CPT/HCPCS: 0232T; 93312; 93325; 36415; 36600; 71045; 71046; 80048; 80053; 81003; 82330; 82435; 82803; 82947; 82948; 83036; 83735; 84100; 84132; 84295; 85018; 85025; 85347; 85384; 85610; 85730; 86885; 86900; 86901; 86920; 87070; 93005; 93880; 93930; 93971; 94002; 94010; 94640; 94760; 97110; 97116; 97162; 97530; A6213; A6255; A6257; A6258; A6402; A6449; A7000; A7048; C1751; J0690; J1644; J1815; J2001; J2060; J2150; J2250; J2270; J2370; J2440; J2704; J2720; J2930; J3370; J3475; J3480; J3490; J7030; J7060; J7120; P9045; P9047

== ENCOUNTER 2018-09-05 07:04 | Outpatient (CLI) | payer MEDICARE, OTHER ==
[~2018-09-05 07:04] MED LIST changes: -AMLO10TA4 PO; +HYDR-3972 PO; -HYDR-565 PO; -LORazepam 2 mg/ml vial IV PRN; +METO25TA6 PO; -VALS1TAB48 PO; -dextrose 50%-water 50ml dispensing syringe IV PRN; -metoprolol tartrate 12.5mg (1/2 tablet) PO PRN; -ringers solution, lacted 1,000 ML IV SCH
[2018-09-05 07:40] LABS: TOTAL HEMOGLOBIN 14.2 G/dl (14.0-18.0)
== END 2018-09-05 23:59 | disposition home or self-care (01) ==
LOC: RT 07:04
PROVIDERS: ATTEND Internal Medicine Cardiovascular Disease
DX: J44.9 Chronic obstructive pulmonary disease, unspecified (principal); I10 Essential (primary) hypertension; Z85.828 Personal history of other malignant neoplasm of skin; Z79.82 Long term (current) use of aspirin; Z79.899 Other long term (current) drug therapy; Z72.89 Other problems related to lifestyle; Z87.891 Personal history of nicotine dependence
CPT/HCPCS: 85018; 94010; 94727; 94729

== ENCOUNTER 2022-03-01 05:33 | Inpatient (IN) | payer MEDICARE ==
[2022-02-23 11:11] LABS: BASOPHILS # (AUTO) 0.1 X10'3 (0-0.2); BASOPHILS % (AUTO) 1.1 % (0-1); EOSINOPHILS # (AUTO) 0.1 X10'3 (0-0.9); EOSINOPHILS % (AUTO) 1.6 % (0-6); LYMPHOCYTES % (AUTO) 19.9 % (21-51); MEAN CORPUSCULAR HEMOGLOBIN 24.6 PG (27.0-31.0); MEAN CORPUSCULAR VOLUME 77.1 FL (78-98); MEAN PLATELET VOLUME 8.7 FL (7.4-10.4); MONOCYTES # (AUTO) 0.4 X10'3 (0-0.9); MONOCYTES % (AUTO) 8.8 % (2-12); NEUTROPHILS # (AUTO) 3.3 X10'3 (1.8-7.7); NEUTROPHILS % (AUTO) 68.6 % (42-75); PRE OP HEMATOCRIT 37.1 % (42.0-52.0); PRE OP HEMOGLOBIN 11.9 g/dL (14.0-17.9); PRE OP PLATELET COUNT 207 X10'3 (140-440); RED BLOOD COUNT 4.81 X10'6 (4.70-6.10); RED CELL DISTRIBUTION WIDTH 16.5 % (11.5-14.5)
[2022-02-23 11:25] LABS: ALBUMIN 3.8 G/DL (3.4-5.0); ALBUMIN/GLOBULIN RATIO 1.2 (1.1-1.5); ALKALINE PHOSPHATASE 66 IU/L (46-116); BLOOD UREA NITROGEN 15 MG/DL (7-18); BUN/CREATININE RATIO 17.2 (5.4-32.0); CHLORIDE 108 MMOL/L (99-107); CREATININE 0.87 MG/DL (0.60-1.10); PRE OP ALT 32 U/L (30-65); PRE OP ANION GAP 9 (8-16); PRE OP AST 19 U/L (10-37); PRE OP BILIRUB, TOTAL 0.2 MG/DL (0.0-1.0); PRE OP GLUCOSE 92 MG/DL (70-104); PRE OP POTASSIUM 4.5 MMOL/L (3.4-5.1); PRE OP SODIUM 142 MMOL/L (135-145); TOTAL CARBON DIOXIDE 25.4 MMOL/L (24-32); eGFR 86 ML/MIN
[2022-03-01] VITALS (18 sets, daily range): BP systolic 94–137; BP diastolic 51–79
[~2022-03-01] VITALS: Ht 180.3 cm; Wt 104.6 kg
[~2022-03-01 05:33] MED LIST changes: -CELE200C PO; -DOCU-28 PO; +DOCU250C16 PO; +DOCUMENT DATE & TIME OF BETA-BLOCKER PO ONE; +DOXE100C10 PO; -DOXE50CA4 PO; -EZET10TA14 PO; +EZET10TA6 PO; -LANS30CA37 PO; +MELO-100 PO; +METO-395 PO; -METO25TA6 PO; +PANT-47 PO; +acetaminophen 325mg tablet PO ONE; +ceFAZolin inj. 2,000 MG in dextrose 5%-water 100 ML IV ONE; +celeCOXIB 100mg capsule PO ONE; +famotidine 20mg tablet PO ONE; +gabapentin 300mg capsule PO ONE; +metoclopramide 5 mg/ml inj IV ONE; +oxyCODONE SR 10mg (sust. release) tab -2 tabs (20mg) PO ONE; +ringers solution, lacted 1,000 ML IV SCH; +vancomycin 1,500 MG in NS 300ml IV soln IV ONE
[2022-03-01] MEDS ORDERED: tranexamic acid inj. 1,000 MG in normal saline IV soln 100ML IV ONE (06:00)
[2022-03-01] MEDS ORDERED: potassium cl 20mEq in 1/2 NS 1,000 ML IV SCH (06:55)
[2022-03-01] MEDS ORDERED: naloxone 0.4 mg/ml inj IV PRN (06:55)
[2022-03-01] MEDS ORDERED: magnesium hydroxide 30ml (MOM) UD suspension PO PRN (06:55)
[2022-03-01] MEDS ORDERED: oxyCODONE IR 5mg (immed. release) tablet PO PRN ×2 (06:55)
[2022-03-01] MEDS ORDERED: acetaminophen 325mg tablet PO PRN (06:55)
[2022-03-01] MEDS ORDERED: ondansetron/PF 4mg/2ml inj IV PRN ×2 (06:55→07:45)
[2022-03-01] MEDS ORDERED: diphenhydrAMINE 25mg capsule PO PRN ×2 (06:55)
[2022-03-01] MEDS ORDERED: HYDROmorphone 1 mg/ml syringe IV PRN (06:55)
[2022-03-01] MEDS ORDERED: bisacodyl 10mg suppository rectal RC PRN (06:55)
[2022-03-01] MEDS ORDERED: HYDROmorphone inj. 0.5 MG/0.5 ML DISP.SYRIN IV PRN (06:55)
[2022-03-01] MEDS ORDERED: vancomycin 1,000mg inj ONE (07:03)
[2022-03-01] MEDS ORDERED: ketorolac trometh. 30mg/ml inj. ONE (07:03)
[2022-03-01] MEDS ORDERED: cloNIDine hcl/PF 100mcg/ml inj ONE (07:03)
[2022-03-01] MEDS ORDERED: tranexamic acid 100mg/ml inj. ONE (07:03)
[2022-03-01] MEDS ORDERED: epiNEPHrine 1 mg/ml inj ONE (07:03)
[2022-03-01] MEDS ORDERED: ROPIVAcaine 0.5% (5mg/ml) 30ml vial IJ ONE ×2 (07:15→07:25)
[2022-03-01] MEDS ORDERED: ROPIVAcaine 0.2% (10 MG/5 ML) BOLUS INJECTION ADDCANAL PRN (07:45)
[2022-03-01] MEDS ORDERED: ROPIVAcaine 0.2%/PF PUMP/bolus 545 ML ADDCANAL SCH (07:45)
[2022-03-01] MEDS ORDERED: ringers solution, lacted 1,000 ML IV SCH ×2 (07:45→09:10)
[2022-03-01] MEDS ORDERED: morphine 2 MG/ML inj. syringe IV PRN (07:45)
[2022-03-01] MEDS ORDERED: labetalol 20mg/4ml (5mg/ml) syringe IV PRN (07:45)
[2022-03-01] MEDS ORDERED: fentaNYL/PF 50MCG/1 ML 2ML syringe IV PRN ×2 (07:45)
[2022-03-01] MEDS ORDERED: morphine 4 MG/ML inj SYRINge IV PRN (07:45)
[2022-03-01] MEDS ORDERED: hydrALAZINE 20mg/ml inj. IV PRN (07:45)
[2022-03-01] MEDS ORDERED: fentaNYL/PF 50MCG/1 ML 2ML syringe ONE (07:47)
[2022-03-01] MEDS ORDERED: MIDAZolam 1mg/ml 10ml vial ONE (07:47)
[2022-03-01] MEDS ORDERED: ROPIVAcaine 0.5% (5mg/ml) 30ml vial ONE ×2 (07:47→09:02)
[2022-03-01] MEDS ORDERED: gabapentin 300mg capsule PO SCH ×2 (08:00→21:00)
[2022-03-01] MEDS ORDERED: ePHEDrine 50MG/ML INJ. ONE (08:25)
[2022-03-01] MEDS ORDERED: docusate sod 250mg capsule PO PRN (10:10)
[2022-03-01] MEDS ORDERED: famotidine 20mg tablet PO PRN (10:10)
--- NOTE | 2022-03-01 10:18 | NUR ---
Received from OR via ORTHO BED , accompanied by Anesthesiologist JEAN CARLOS and report given by Anesthesiolgist. PATIENT WITH 18G PIV IN LEFT UE RUNNING LR AT 100. VSS. LEFT KNEE WRAP AND POWDER PACK PRESENT. PATIENT WITH + DP ON PALPATION. ON Q NERVE BLOCK SITE AND TESSA VAC BOTH PRESENT AND FUNCTIONAL. SCDS DONNED. Addendum: 03/01/22 at 1023 by Carlos Ash RN, RN Amended: Links added.
--- NOTE | 2022-03-01 10:45 | NUR ---
Patient in room ORTHO 4012A. I have received report from TAMMY ZAMORA FROM [facility] and had the opportunity to ask questions and assume patient care.
[2022-03-01] MEDS ORDERED: baclofen 10mg tablet PO PRN (13:00)
[2022-03-01] MEDS ORDERED: tranexamic acid inj. 1,000 MG in normal saline 100ml IV soln 90 ML IV ONE (13:30)
[2022-03-01] MEDS ORDERED: cefazolin/dext.iso 2gm/100ml 100 ML IV SCH (16:00)
--- NOTE | 2022-03-01 17:50 | NUR ---
PATIENT STABLE AND APPROPRIATE FOR DISCHARGE, IV REMOVED, PATIENT SENT HOME WITH A FULL ON-Q BALL, EXTRA DRESSINGS, ALL BELONGINGS SENT WITH PATIENT, EDUCATION GIVEN, PATIENT TAKEN TO LOBBY BY WHEELCHAIR TO AN AWAITING CAR WHERE WILL TAKE PATIENT HOME
[2022-03-01] MEDS ORDERED: acetaminophen 325mg tablet PO SCH (20:00)
[2022-03-01] MEDS ORDERED: ascorbic acid 500mg tablet PO SCH (20:00)
[2022-03-01] MEDS ORDERED: VANCOMYCIN 1,500MG inj. 1,500 MG in normal saline 500ml IV soln 300 ML IV ONE (20:00)
[2022-03-01] MEDS ORDERED: doxepin 25mg capsule PO SCH (21:00)
[2022-03-01] MEDS ORDERED: sennosides 8.6mg tablet PO SCH (21:00)
[2022-03-02] MEDS ORDERED: pantoprazole 40mg Tablet.DR PO SCH (08:00)
[2022-03-02] MEDS ORDERED: multivitamins, therapeutics tablet PO SCH (08:00)
[2022-03-02] MEDS ORDERED: metoprolol succinate 25mg (24-HOUR) SR. Tablet PO SCH (08:00)
[2022-03-02] MEDS ORDERED: aspirin 325mg tablet PO SCH (08:30)
[2022-03-02] MEDS ORDERED: ezetimibe 10mg tablet PO SCH (12:00)
[2022-03-02] MEDS ORDERED: celeCOXIB 100mg capsule PO SCH (20:00)
[2022-03-02] MEDS ORDERED: tamsulosin 0.4mg capsule PO SCH (21:00)
== END 2022-03-01 17:40 | disposition home or self-care (01) | DRG 470 ==
LOC: PAS 05:33 → PAS IN 07:05 → ORTHO 4S 11:05
PROVIDERS: ADMIT Orthopaedic Surgery; ATTEND Orthopaedic Surgery
PROC: 3E0T3BZ Introduction of Anesthetic Agent into Peripheral Nerves and Plexi, Percutaneous Approach (ICD-10-PCS; 2022-03-01)
PROC: 3E0T33Z Introduction of Anti-inflammatory into Peripheral Nerves and Plexi, Percutaneous Approach (ICD-10-PCS; 2022-03-01)
PROC: 0SRD0J9 Replacement of Left Knee Joint with Synthetic Substitute, Cemented, Open Approach (ICD-10-PCS; principal; 2022-03-01 08:05)
DX: M17.12 Unilateral primary osteoarthritis, left knee (principal); Z79.899 Other long term (current) drug therapy; Z79.82 Long term (current) use of aspirin
CPT/HCPCS: 36415; 73560; 80053; 82948; 85025; 86885; 86900; 86901; 87081; 87811; 97110; 97116; 97161; 97530; A4615; A6258; G0378; J0171; J0690; J0735; J1885; J2250; J2765; J2795; J3010; J3370; J3490; J7040; J7060; J7120